=== PATIENT | male | born 1990 | race Caucasian/White ===

== ENCOUNTER 2017-01-05 19:41 | Emergency (ER) | payer SELFPAY ==
[~2017-01-05] VITALS: Ht 188 cm; Wt 78.5 kg
[~2017-01-05 19:41] MED LIST: IBUP-103 PO
[2017-01-05 19:56] VITALS: TEMP 37.2; Ht 188 cm; Wt 78.5 kg
[2017-01-05] MEDS ORDERED: AMOXICILLIN 250 MG CAP PO STA (20:04)
--- NOTE | 2017-01-05 20:13 | EMERGENCY ROOM VISIT NOTE ---
ED Visit Note First contact with patient: 19:58 CHIEF COMPLAINT: Toothache HISTORY OF PRESENT ILLNESS: This 26-year-old male presents the ER with chief complaint of left upper tooth pain. The patient states that he has had the pain in the tooth for several months but got worse over the last week and today it became unbearable. The patient has been taking Advil without any relief. The patient states the pain is now radiating up to his face on the left side. He denies any facial swelling. The patient denies any fever or neck pain. The patient states that he does not have dental insurance and he also cannot take off of work to go to the dentist. REVIEW OF SYSTEMS: 6 system review was performed and was negative unless stated otherwise in history of present illness. PMH: The patient is healthy; epilepsy, brain surgery SOCIAL HISTORY: Patient lives with his girlfriend. The patient admits to tobacco use but denies any alcohol use PHYSICAL EXAM: Vital Signs: Were reviewed Reviewed Nurse's notes. GEN.: 26-year -old white male appears uncomfortable secondary to tooth pain. MENTAL Status: Alert and oriented 3. MOUTH: #10 and 11 tooth are very carious with tenderness to percussion. Poor dental hygiene is noted throughout. Comes with slight erythema but no palpable abscess. FACE: There is no facial swelling, NECK: No cervical or submandibular lymphadenopathy. LUNGS: Clear to auscultation without wheezes rales or rhonchi. EMERGENCY COURSE: The patient drove himself to the emergency room therefore he did not receive any additional pain medication while in the ER. He was given a Swan home pack to take as directed. He was given amoxicillin 500 mg while in the emergency room. The patient was discharged home in stable condition. DIAGNOSIS: Dental caries and dentalgia DISCHARGE INSTRUCTIONS & TREATMENT: Ibuprofen 600 mg every 6 hours with food for pain. Take Swan as needed for more severe pain. Do not drive while taking the Swan. Also recommend [id number] Orajel to apply adjacent to the teeth for further pain management. Take amoxicillin as prescribed. See a dentist as soon as possible for definitive care. Problem List Medical Problems: (1) Cavernous hemangioma Status: Chronic (2) Seizure Status: Resolved (3) Seizure disorder Status: Chronic Surgical Problems: (1) S/P craniotomy Status: Resolved Current/Historical Medications Scheduled PRN Ibuprofen Tab (Advil), 200-600 MG PO Q4H PRN for Pain Allergies Coded Allergies: No Known Allergies (Unverified , 01/05/17) Vital Signs Date Time Temp Pulse Resp B/P Pulse Ox O2 Delivery O2 Flow Rate FiO2 01/05/17 19:56 37.2 64 18 119/87 96 Room Air Departure Information Referrals No Doctor, Assigned (PCP) Patient Instructions [facility]
[2017-01-05] MEDS ORDERED: NORCO 5/325MG HOME PACK PO ONE (20:15)
[2017-01-05] MEDS ORDERED: AMOX500C3 PO (20:22)
[2017-01-05] MEDS ORDERED: HYDR-5688 PO (20:22)
[2017-01-05 20:26] VITALS: BP 115/62; PULSE 62; O2SAT 98
== END 2017-01-05 20:27 | disposition home or self-care (01) ==
LOC: C.EDB 19:42 → C.EDD 20:27
DX: K02.9 Dental caries, unspecified (principal)

== ENCOUNTER 2017-12-24 06:48 | Emergency (ER) | payer BC ==
[~2017-12-24] VITALS: Ht 188 cm; Wt 75.3 kg
[2017-12-24 06:49] VITALS: Ht 188 cm; Wt 75.3 kg
[2017-12-24 07:29] VITALS: O2SAT 99
[2017-12-24] MEDS ORDERED: KETOROLAC TROMETHAMINE 30 MG/ML VIAL IV STA (07:39)
[2017-12-24] MEDS ORDERED: SODIUM CHLORIDE 0.9% 1000ML 1,000 ML IV STA (07:39)
[2017-12-24 07:57] LABS: BASO % 0.3 %; BASO ABS # 0.02 K/uL (0-0.2); EOS % 2.3 %; EOS ABS # 0.15 K/uL (0-0.5); HEMATOCRIT 40.9 % (42-52); HEMOGLOBIN 14.9 g/dL (14.0-18.0); IG# 0.02 K/uL (0.00-0.02); LYMPH % 30.8 %; LYMPH ABS # 1.99 K/uL (1.2-3.4); MEAN CELL VOLUME 86.8 fL (80-100); MEAN CORPUSCULAR HEMOGLOBIN 31.6 pg (25-34); MEAN CORPUSCULAR HGB CONC 36.4 g/dl (32-36); MEAN PLATELET VOLUME 9.6 fL (7.4-10.4); MONO % 9.9 %; MONO ABS # 0.64 K/uL (0.11-0.59); NEUT % 56.4 %; NEUT ABS # 3.65 K/uL (1.4-6.5); PLATELET COUNT 192 K/uL (130-400); RED CELL DISTRIBUTION WIDTH CV 12.5 % (11.5-14.5); RED CELL DISTRIBUTION WIDTH SD 40.2 fL (36.4-46.3); WHITE BLOOD COUNT 6.47 K/uL (4.8-10.8)
--- NOTE | 2017-12-24 08:00 | DIAGNOSTIC IMAGING REPORT ---
CHEST ONE VIEW PORTABLE HISTORY: SEIZURE COMPARISON: Chest 09/24/2010. FINDINGS: The lungs are clear. Cardiac silhouette is normal in size. No pleural effusions. No pneumothorax. IMPRESSION: No acute process. Electronically signed by: Hermelindo Murcia M.D. 12/24/2017 7:58 AM Dictated Date/Time: 12/24/2017 7:57 AM
--- NOTE | 2017-12-24 08:04 | DIAGNOSTIC IMAGING REPORT ---
CT HEAD WITHOUT CONTRAST (CT) CLINICAL HISTORY: SEIZURE HISTORY OF PRIOR BRAIN TUMOR. COMPARISON STUDY: June 27, 2013 TECHNIQUE: Axial CT of the brain is performed from the vertex to the skull base. IV contrast was not administered for this examination. A dose lowering technique was utilized adhering to the principles of ALARA. CT DOSE: 537.48 mGy.cm FINDINGS: Post craniotomy changes are again evident on the right. There is a stable 12 mm hyperdense lesion abutting the right lateral ventricle. This is producing felt to represent a cavernoma. There is stable encephalomalacia involving the right temporal lobe. There is a new 16 mm hyperdense focus within the right frontal lobe in the area of prior encephalomalacia. There is slight increased white matter edema associated with this lesion. This may represent a new hemorrhagic focus. An MRI is recommended in follow-up. There is no evidence of pathologic ventricular dilatation. There is no evidence of acute sinusitis IMPRESSION: 1. Persistent postsurgical changes in the right hemisphere 2. New 16 mm hyperdense lesion within the right frontal lobe, possibly representing acute hemorrhage. An MRI is recommended in follow-up 3. Stable 12 mm hyperdense lesion abutting the right lateral ventricle, consistent with the patient's known cavernoma Electronically signed by: Franco Quintana M.D. 12/24/2017 8:03 AM Dictated Date/Time: 12/24/2017 7:47 AM
[2017-12-24 08:09] LABS: INR 1.1 (0.9-1.1); PTT PATIENT 23.8 SECONDS (21.0-31.0)
[2017-12-24 08:12] LABS: CALCIUM 9.6 mg/dl (8.5-10.1); CREATININE 0.96 mg/dl (0.60-1.40); POTASSIUM 3.4 mmol/L (3.5-5.1)
[2017-12-24 08:21] LABS: PHOSPHORUS 2.2 mg/dl (2.5-4.9)
[2017-12-24] MEDS ORDERED: MoRPHine SULFATE 4 MG/ML 1 ML CARP\\VIAL IV STA (08:37)
[2017-12-24] MEDS ORDERED: LEVETIRACETAM IV 1,000 MG in DEXTROSE 5% 100ML 100 ML IV ONE (08:45)
[2017-12-24 10:14] VITALS: BP 92/59; PULSE 54; TEMP 36.4; O2SAT 96
--- NOTE | 2017-12-24 13:47 | EMERGENCY ROOM VISIT NOTE ---
History Report prepared by Patricia: Asim Person Under the Supervision of: Dr. Jesse Johnson D.O. First contact with patient: 06:55 Chief Complaint: SEIZURE Stated Complaint: SEIZURE Nursing Triage Summary: Patient states "I had a seizure last night. I was sleeping whenever it happened. My girlfriend told me this morning. I have a history of them. I don't take medications for it. This is the first seizure I had in over a year. " History of Present Illness The patient is a 27 year old male who presents to the Emergency Room with complaints of a resolved seizure that occurred around 5045 this morning while sleeping, and it lasted 2-3 minutes. The patient's girlfriend states that the patient was sleeping, and he started shaking, his arms went stiff, and he was gasping for air. The patient was then incoherent for around 20 minutes, and then he eventually got back to his baseline. He states that he has a history of seizures, and he states that this is his third seizure since 2009 after having brain surgery. He had a removal of a cavernous hemangioma. Prior to the surgery he was having more seizures. The patient states that he used to take Depakote until his surgery, and then since then he has stopped taking it, and he does not regularly follow up with a neurologist. The patient states that he currently has a headache which is common for his seizures. The patient notes that he does not drive. Pt denies change in vision, fevers, chest pain, shortness of breath, nausea, vomiting, diarrhea, pain with urination, and melena. Source of History: patient Onset: 0545 Position: other (global) Quality: other (seizure) Timing: resolved Associated Symptoms: + headache Review of Systems See HPI for pertinent positives & negatives. A total of 10 systems reviewed and were otherwise negative. Past Medical & Surgical Medical Problems: (1) Cavernous hemangioma (2) Seizure (3) Seizure disorder Surgical Problems: (1) S/P craniotomy Social History Smoking Status: Current Every Day Smoker Alcohol Use: occasionally Drug Use: none Marital Status: single Housing Status: lives with family Occupation Status: employed Current/Historical Medications No Active Prescriptions or Reported Meds Allergies Coded Allergies: No Known Allergies (Unverified , 12/24/17) Physical Exam Vital Signs Date Time Temp Pulse Resp B/P (MAP) Pulse Ox O2 Delivery O2 Flow Rate FiO2 12/24/17 10:14 36.4 54 12 92/59 96 12/24/17 10:00 54 12 92/59 96 12/24/17 09:45 59 12 90/55 96 12/24/17 09:40 58 14 96 12/24/17 09:30 57 16 93/57 97 Room Air 12/24/17 09:00 59 16 107/60 96 Room Air 12/24/17 07:55 75 12/24/17 07:29 99 Room Air 12/24/17 06:49 36.4 91 18 108/73 94 Room Air Physical Exam GENERAL: Sitting up in bed, alert, well appearing, well nourished, no distress, non-toxic EYE EXAM: normal conjunctiva. PERRL and EOM's intact. OROPHARYNX: no exudate, no erythema, lips, buccal mucosa, and tongue normal and mucous membranes are moist NECK: supple, no nuchal rigidity, no adenopathy, non-tender LUNGS: Clear to auscultation. Normal chest wall mechanics HEART: no murmurs, S1 normal and S2 normal ABDOMEN: abdomen soft, non-tender, normo-active bowel sounds, no masses, no rebound or guarding. BACK: Back is symmetrical on inspection and there is no deformity, no midline tenderness, no CVA tenderness. SKIN: no rashes and no bruising UPPER EXTREMITIES: upper extremities are grossly normal. LOWER EXTREMITIES: No pitting edema. NEURO EXAM: Normal sensorium, cranial nerves II-XII intact, normal speech, no weakness of arms, no weakness of legs. No drift. Finger to nose intact. Gross sensation intact. Rapid alternating movements of the upper extremities intact. Medical Decision & Procedures ER Provider Diagnostic Interpretation: Radiology results as stated below per my review and the radiologist's interpretation: CT HEAD WITHOUT CONTRAST (CT) CLINICAL HISTORY: SEIZURE HISTORY OF PRIOR BRAIN TUMOR. COMPARISON STUDY: June 27, 2013 TECHNIQUE: Axial CT of the brain is performed from the vertex to the skull base. IV contrast was not administered for this examination. A dose lowering technique was utilized adhering to the principles of ALARA. CT DOSE: 537.48 mGy.cm FINDINGS: Post craniotomy changes are again evident on the right. There is a stable 12 mm hyperdense lesion abutting the right lateral ventricle. This is producing felt to represent a cavernoma. There is stable encephalomalacia involving the right temporal lobe. There is a new 16 mm hyperdense focus within the right frontal lobe in the area of prior encephalomalacia. There is slight increased white matter edema associated with this lesion. This may represent a new hemorrhagic focus. An MRI is recommended in follow-up. There is no evidence of pathologic ventricular dilatation. There is no evidence of acute sinusitis IMPRESSION: 1. Persistent postsurgical changes in the right hemisphere 2. New 16 mm hyperdense lesion within the right frontal lobe, possibly representing acute hemorrhage. An MRI is recommended in follow-up 3. Stable 12 mm hyperdense lesion abutting the right lateral ventricle, consistent with the patient's known cavernoma Electronically signed by: Franco Quintana M.D. 12/24/2017 8:03 AM Dictated Date/Time: 12/24/2017 7:47 AM CHEST ONE VIEW PORTABLE HISTORY: SEIZURE COMPARISON: Chest 09/24/2010. FINDINGS: The lungs are clear. Cardiac silhouette is normal in size. No pleural effusions. No pneumothorax. IMPRESSION: No acute process. Electronically signed by: Hermelindo Murcia M.D. 12/24/2017 7:58 AM Dictated Date/Time: 12/24/2017 7:57 AM Laboratory Results 12/24/17 07:20 Red Blood Count 4.71, Mean Corpuscular Volume 86.8, Mean Corpuscular Hemoglobin 31.6, Mean Corpuscular Hemoglobin Concent 36.4, Mean Platelet Volume 9.6, Neutrophils (%) (Auto) 56.4, Lymphocytes (%) (Auto) 30.8, Monocytes (%) (Auto) 9.9, Eosinophils (%) (Auto) 2.3, Basophils (%) (Auto) 0.3, Neutrophils # (Auto) 3.65, Lymphocytes # (Auto) 1.99, Monocytes # (Auto) 0.64, Eosinophils # (Auto) 0.15, Basophils # (Auto) 0.02 12/24/17 07:20 Test 12/24/17 07:20 12/24/17 07:21 White Blood Count 6.47 K/uL (4.8-10.8) Red Blood Count 4.71 M/uL (4.7-6.1) Hemoglobin 14.9 g/dL (14.0-18.0) Hematocrit 40.9 % (42-52) Mean Corpuscular Volume 86.8 fL (80-100) Mean Corpuscular Hemoglobin 31.6 pg (25-34) Mean Corpuscular Hemoglobin Concent 36.4 g/dl (32-36) Platelet Count 192 K/uL (130-400) Mean Platelet Volume 9.6 fL (7.4-10.4) Neutrophils (%) (Auto) 56.4 % Lymphocytes (%) (Auto) 30.8 % Monocytes (%) (Auto) 9.9 % Eosinophils (%) (Auto) 2.3 % Basophils (%) (Auto) 0.3 % Neutrophils # (Auto) 3.65 K/uL (1.4-6.5) Lymphocytes # (Auto) 1.99 K/uL (1.2-3.4) Monocytes # (Auto) 0.64 K/uL (0.11-0.59) Eosinophils # (Auto) 0.15 K/uL (0-0.5) Basophils # (Auto) 0.02 K/uL (0-0.2) RDW Standard Deviation 40.2 fL (36.4-46.3) RDW Coefficient of Variation 12.5 % (11.5-14.5) Immature Granulocyte % (Auto) 0.3 % Immature Granulocyte # (Auto) 0.02 K/uL (0.00-0.02) Prothrombin Time 11.2 SECONDS (9.0-12.0) Prothromb Time International Ratio 1.1 (0.9-1.1) Activated Partial Thromboplast Time 23.8 SECONDS (21.0-31.0) Partial Thromboplastin Ratio 0.9 Anion Gap 7.0 mmol/L (3-11) Est Creatinine Clear Calc Drug Dose 122.0 ml/min Estimated GFR () 124.2 Estimated GFR (Non- 107.1 BUN/Creatinine Ratio 13.1 (10-20) Calcium Level 9.6 mg/dl (8.5-10.1) Phosphorus Level 2.2 mg/dl (2.5-4.9) Magnesium Level 2.6 mg/dl (1.8-2.4) Thyroid Stimulating Hormone (TSH) 3.830 uIu/ml (0.300-4.500) Bedside Glucose 94 mg/dl (70-99) Laboratory results per my review. Medications Administered Medications (Trade) Dose Ordered Sig/Bay Route Start Time Stop Time Status Last Admin Dose Admin Sodium Chloride 1,000 ml @ 999 mls/hr Q1H1M STAT IV 12/24/17 07:39 12/24/17 08:39 DC 12/24/17 08:11 999 MLS/HR Ketorolac Tromethamine (Toradol Inj) 30 mg NOW STAT IV 12/24/17 07:39 12/24/17 07:41 DC 12/24/17 08:12 30 MG Levetiracetam 1000 mg/Dextrose 110 ml @ 440 mls/hr ONE ONCE IV 12/24/17 08:45 12/24/17 08:59 DC 12/24/17 09:21 440 MLS/HR ECG Per My Interpretation Indication: other (seizure) Rate (beats per minute): 70 Rhythm: sinus rhythm Findings: no ectopy, other (normal axis) ED Course ED COURSE: Vital signs were reviewed and showed normal vitals The patients medical record was reviewed The above diagnostic studies were performed and reviewed. ED treatments and interventions as stated above. 0655: The patient was evaluated in room B2. A complete history and physical examination was performed. 0739: Toradol 30mg IV, Sodium Chloride 1000 ml @ 999 mls/hr IV 0817: I reevaluated the patient, and I updated him on the results. 0824: I discussed the patient's case with Dr. Quintana - Radiology, and he recommends getting an MRI with and without contrast. 0837: Morphine Sulfate 4mg IV 0838: Upon reevaluation, the patient is doing well.I discussed my findings with the patient and he understands and agrees with the treatment plan. Based on the patients age, coexisting illnesses, exam and lab findings the decision to treat as transfer patient was made. The patient remained stable while under my care. The patient will be transferred to [place] 0845: Levetiracetam 110ml @ 440mls.hr IV 0902: I reviewed the patient's case with Dr. Gary - [facility]. He has accepted the patient as a transfer. Medical Decision Differential diagnosis includes etiologies such as infection, hypoglycemia, electrolyte abnormalities, cardiac sources, intracerebral event, trauma, toxicologic, neurologic, as well as others were entertained. Patient is a 19-year-old male that presents to ER for a seizure which occurred while sleeping. He has a past medical history of hemangiomas and had brain surgery secondary to these in 2009. Since then he has only had 2-[address] he does appeared to have intracerebral hemorrhage. I do favor this is secondary to his history of hemangiomas. Did discuss with her radiologist. As we have no neurosurgeon on-call I did discuss with Jamila and patient was transferred via ambulance. CBC and BMP was unremarkable. TSH was normal. He takes no blood thinners. Unfortunately he was given a dose of Toradol upon arrival. He was also given IV Keppra secondary to the seizure and intracranial hemorrhage. Medication Reconcilliation Current Medication List: was personally reviewed by me Blood Pressure Screening Patient's blood pressure: Normal blood pressure Consults Time Called: 0840 Consulting Physician: Dr. Gary - [facility] Returned Call: 09 I reviewed the patient's case with Dr. [facility]. He has accepted the patient as a transfer. Additional Consults: Time Called: 0815 Consulted Physician: Dr. Quintana Returned Call: 08 Additional Comments: I discussed the patient's case with Dr. Quintana - Radiology, and he recommends getting an MRI with and without contrast. Impression Primary Impression: Intracranial hemorrhage Additional Impressions: Seizure Hypokalemia Critical Care I have personally spent 35 minutes of critical care time in the direct management of this patient. This includes bedside care, interpretation of diagnostic studies, and testing, discussion with consultants, patient, and family members, and other required patient management activities. This 35 minutes is in excess of all separately billable procedures. Scribe Attestation The scribe's documentation has been prepared under my direction and personally reviewed by me in its entirety. I confirm that the note above accurately reflects all work, treatment, procedures, and medical decision making performed by me. Departure Information Dispostion Transfer Acute Care Facility Prescriptions No Active Prescriptions or Reported Meds Referrals No Doctor, Assigned (PCP) Patient Instructions [facility] Problem Qualifiers
== END 2017-12-24 10:15 | disposition short-term general hospital (02) ==
LOC: C.EDB 06:49
DX: I62.9 Nontraumatic intracranial hemorrhage, unspecified (principal); R56.9 Unspecified convulsions; E87.6 Hypokalemia; F17.200 Nicotine dependence, unspecified, uncomplicated

== ENCOUNTER 2018-01-04 15:09 | Emergency (ER) | payer BC ==
[~2018-01-04] VITALS: Ht 188 cm; Wt 74.6 kg
[2018-01-04 15:18] VITALS: TEMP 37.2; Ht 188 cm; Wt 74.6 kg
[2018-01-04] MEDS ORDERED: SODIUM CHLORIDE 0.9% 1000ML 2,000 ML IV STA (15:31)
--- NOTE | 2018-01-04 15:31 | EMERGENCY ROOM VISIT NOTE ---
History Report prepared by Patricia: Jonatan Barrios Under the Supervision of: Dr. Manuel Cosme M.D. First contact with patient: 15:17 Chief Complaint: SEIZURE Stated Complaint: SEIZURE History of Present Illness The patient is a 27 year old male with a history of seizure disorder who presents to the Emergency Room via EMS with complaints of a seizure episode that occurred prior to arrival today. He states that he was diagnosed with grand mal seizure disorder when he was 9 years old, and was started on Depakote. The patient says that he stopped taking the medication 2 years ago, but had a seizure episode a bit over a week ago and was seen at the [place] [facility]. The patient was then started on the Depakote again, but the patient states that he stopped taking it 3 or 4 days ago because it was making him nauseous. Per the patient's girlfriend, she was at [facility] earlier today with the patient. The patient was standing, and then he noted that "it's happening", and he then started going into a grand mal seizure. The patient was on the floor shaking, and it went on for about 2 to 3 minutes. He was then noted to be a bit confused afterward. He states that he currently has a headache, but denies any other complaints, including cough, congestion, nausea, vomiting, diarrhea, or urinary symptoms. He notes no history of traumatic brain injuries. The patient notes that he follows-up with Dr. Peng of neurology, but has not seen him since having brain surgery in 2009 for cavernous hemangioma. He states that he also saw Dr. Hamilton of neurosurgery at that time. 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 Review of Systems See HPI for pertinent positives and negatives. A total of ten systems were reviewed and were otherwise negative. Past Medical & Surgical Medical Problems: (1) Cavernous hemangioma (2) Seizure (3) Seizure disorder Surgical Problems: (1) S/P craniotomy Family History Seizures Social History Smoking Status: Current Every Day Smoker Alcohol Use: occasionally Drug Use: none Marital Status: single Housing Status: lives with family Occupation Status: employed Current/Historical Medications Scheduled Divalproex Sodium (Depakote Delay Rel), 500 MG PO QID Levetiracetam (Keppra), 500 MG PO BID Ondasetron Odt (Zofran Odt), 4 MG SL Q6H Allergies Coded Allergies: No Known Allergies (Unverified , 01/04/18) Physical Exam Vital Signs Date Time Temp Pulse Resp B/P (MAP) Pulse Ox O2 Delivery O2 Flow Rate FiO2 01/04/18 20:58 72 01/04/18 20:51 61 16 95 01/04/18 20:36 73 15 97 01/04/18 20:31 119/72 01/04/18 20:21 81 21 98 01/04/18 20:06 71 13 98 01/04/18 20:01 118/70 01/04/18 20:00 72 14 97 01/04/18 19:55 106/94 01/04/18 19:33 69 16 112/67 96 Room Air 01/04/18 17:46 61 15 110/70 99 Room Air 01/04/18 16:56 68 01/04/18 16:10 82 17 117/77 97 Room Air 01/04/18 15:27 110 01/04/18 15:18 37.2 112 20 161/85 99 Room Air Physical Exam GENERAL: Awake, alert, fatigued-appearing, in no distress HENT: Normocephalic, atraumatic. Dry mucous membranes. EYES: Normal conjunctiva. Sclera non-icteric. NECK: Supple. No nuchal rigidity. FROM. No JVD. RESPIRATORY: Clear to auscultation. CARDIAC: Regular rate, normal rhythm. Extremities warm and well perfused. Pulses equal. ABDOMEN: Soft, non-distended. No tenderness to palpation. No rebound or guarding. No masses. RECTAL: Deferred. MUSCULOSKELETAL: Chest examination reveals no tenderness. The back is symmetrical on inspection without obvious abnormality. There is no CVA tenderness to palpation. No joint edema. LOWER EXTREMITIES: Calves are equal size bilaterally and non-tender. No edema. No discoloration. NEURO: Normal sensorium. No sensory or motor deficits noted. SKIN: No rash or jaundice noted. Medical Decision & Procedures ER Provider Diagnostic Interpretation: Radiology results as stated below per my review and radiologist interpretation: HEAD WITHOUT CONTRAST (CT) CLINICAL HISTORY: 27 years-old Male presenting with siezure, recent ICH, history of brain tumor. TECHNIQUE: Multidetector CT imaging of the head was performed without the use of intravenous contrast. IV contrast: None. A dose lowering technique was used consistent with the principles of ALARA (as low as reasonably achievable). COMPARISON: 12/24/2017. CT DOSE (mGy.cm): The estimated cumulative dose is 580.48 mGy.cm. 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 Ventricles and sulci normal in size. Cystic encephalomalacia and gliosis noted in the right frontal region with persistent hyperdense foci peripherally in the right frontal lobe as well as adjacent to the right thalamus in the subcortical white matter. These remain hyperdense and have not evolved in the interim. Cystic encephalomalacia also noted in the anterolateral right temporal lobe. No mass effect or midline shift. No acute territorial infarct. No extra-axial fluid collection. Postsurgical changes of right frontotemporal craniotomy. Paranasal sinuses and mastoid air cells clear. IMPRESSION: 1. Unchanged appearance since the most recent prior CT on 12/24/2017. Hyperdense focus adjacent to the right thalamus is unchanged since 2012 and not consistent with hemorrhage, possibly calcification. Hyperdense focus more peripherally in the right frontal lobe does not demonstrate interval evolution and may not represent hemorrhage. Contrast-enhanced brain MR is recommended for further evaluation. Electronically signed by: Andreas Conteh M.D. 01/04/2018 4:58 PM Dictated Date/Time: 01/04/2018 4:53 PM BRAIN COMBO CLINICAL HISTORY: 27 years-old Male presenting with Seizures. h/o hemagioma resection. TECHNIQUE: Multisequence, multiplanar MR imaging of the brain was performed before and after the administration of intravenous contrast. IV contrast: 7.4 mL of Gadavist. COMPARISON: 06/24/[address] from 01/04/2018, 12/24/2017, 06/27/2013. FINDINGS: Postsurgical changes of the right frontal region with cystic encephalomalacia and gliosis in the operative bed. Multilobular T1 hyperintense, mildly T2 hyperintense focus corresponds to the hyperdense peripheral frontal lobe focus seen on CT. Signal characteristics are indicative of hemorrhage. The additional hyperdense focus adjacent to the right thalamus is mildly T1 hypointense, T2 hypointense and most suggestive of hemosiderin or calcification. Additional cystic encephalomalacia and gliosis in the right temporal lobe. Postcontrast imaging does not demonstrate significant enhancement in the right frontal operative bed allowing for intrinsic T1 hyperintensity of the hemorrhage. No nodular enhancement in the right temporal lobe or elsewhere in the brain parenchyma. No mass effect or midline shift. No restricted diffusion to suggest acute ischemia. No hemorrhage. No extra-axial fluid collection. T2 skull base flow voids preserved. Bone marrow signal intensity within the calvarium within normal limits. IMPRESSION: 1. Postsurgical changes in the right frontal and temporal lobes with the hyperdense lobular focus in the right frontal region consistent with subacute hemorrhage. The deeper hyperdense focus on CT adjacent to the right thalamus is consistent with calcification or hemosiderin. No nodular enhancement to suggest recurrent neoplastic disease. Electronically signed by: Andreas Conteh M.D. 01/04/2018 7:43 PM Dictated Date/Time: 01/04/2018 7:36 PM Laboratory Results 01/04/18 15:22 Red Blood Count 5.48, Mean Corpuscular Volume 89.4, Mean Corpuscular Hemoglobin 31.8, Mean Corpuscular Hemoglobin Concent 35.5, Mean Platelet Volume 9.9, Neutrophils (%) (Auto) 58.2, Lymphocytes (%) (Auto) 28.5, Monocytes (%) (Auto) 9.4, Eosinophils (%) (Auto) 3.0, Basophils (%) (Auto) 0.6, Neutrophils # (Auto) 3.84, Lymphocytes # (Auto) 1.88, Monocytes # (Auto) 0.62, Eosinophils # (Auto) 0.20, Basophils # (Auto) 0.04 01/04/18 15:22 Test 01/04/18 15:22 01/04/18 16:02 White Blood Count 6.60 K/uL (4.8-10.8) Red Blood Count 5.48 M/uL (4.7-6.1) Hemoglobin 17.4 g/dL (14.0-18.0) Hematocrit 49.0 % (42-52) Mean Corpuscular Volume 89.4 fL (80-100) Mean Corpuscular Hemoglobin 31.8 pg (25-34) Mean Corpuscular Hemoglobin Concent 35.5 g/dl (32-36) Platelet Count 253 K/uL (130-400) Mean Platelet Volume 9.9 fL (7.4-10.4) Neutrophils (%) (Auto) 58.2 % Lymphocytes (%) (Auto) 28.5 % Monocytes (%) (Auto) 9.4 % Eosinophils (%) (Auto) 3.0 % Basophils (%) (Auto) 0.6 % Neutrophils # (Auto) 3.84 K/uL (1.4-6.5) Lymphocytes # (Auto) 1.88 K/uL (1.2-3.4) Monocytes # (Auto) 0.62 K/uL (0.11-0.59) Eosinophils # (Auto) 0.20 K/uL (0-0.5) Basophils # (Auto) 0.04 K/uL (0-0.2) RDW Standard Deviation 40.5 fL (36.4-46.3) RDW Coefficient of Variation 12.4 % (11.5-14.5) Immature Granulocyte % (Auto) 0.3 % Immature Granulocyte # (Auto) 0.02 K/uL (0.00-0.02) Anion Gap 16.0 mmol/L (3-11) Est Creatinine Clear Calc Drug Dose 86.6 ml/min Estimated GFR () 83.0 Estimated GFR (Non- 71.6 BUN/Creatinine Ratio 9.5 (10-20) Calcium Level 9.7 mg/dl (8.5-10.1) Magnesium Level 2.4 mg/dl (1.8-2.4) Total Bilirubin 0.5 mg/dl (0.2-1) Direct Bilirubin 0.1 mg/dl (0-0.2) Aspartate Amino Transf (AST/SGOT) 14 U/L (15-37) Alanine Aminotransferase (ALT/SGPT) 26 U/L (12-78) Alkaline Phosphatase 83 U/L (45-117) Total Protein 8.5 gm/dl (6.4-8.2) Albumin 4.8 gm/dl (3.4-5.0) Lipase 136 U/L (73-393) Ethyl Alcohol mg/dL < 3.0 mg/dl (0-3) Laboratory results reviewed by me Medications Administered Medications (Trade) Dose Ordered Sig/Bay Route Start Time Stop Time Status Last Admin Dose Admin Levetiracetam 1000 mg/Dextrose 110 ml @ 440 mls/hr ONE ONCE IV 01/04/18 15:45 01/04/18 15:59 DC 01/04/18 16:07 440 MLS/HR Sodium Chloride 2,000 ml @ 999 mls/hr Q2H1M STAT IV 01/04/18 15:31 01/04/18 17:31 DC 01/04/18 15:31 999 MLS/HR Levetiracetam (Keppra Tab) 500 mg NOW STAT PO 01/04/18 20:18 01/04/18 20:21 DC 01/04/18 21:06 500 MG Ondansetron HCl (ZOFRAN ODT 4MG Home Pack) 1 homepack UD ONCE PO 01/04/18 20:30 01/04/18 20:31 DC 01/04/18 21:06 1 HOMEPACK ECG Per My Interpretation Indication: other (seizure) Rate (beats per minute): 85 Rhythm: normal sinus Findings: no acute ischemic change, other (normal axis) ED Course 1520: The patient was evaluated in room C5. A complete history and physical exam was performed. 1999: I reevaluated the patient and he is resting. Discussed results and discharge instructions: he verbalized understanding and agreement. The patient will be discharged. Medical Decision I reviewed the patient's past medical history, medications, and the nursing notes as described above. Differential diagnosis: Etiologies such as infection, hypoglycemia, electrolyte abnormalities, cardiac sources, intracerebral event, trauma, toxicologic, neurologic, as well as others were entertained. The patient is a 27-year-old gentleman with past medical history of a seizure disorder diagnosed when he was 9 years old and supposed to be on Depakote but had stopped taking it 2 years ago because it makes him sick and h/o hemangioma resection 2009 now presents emergency department with seizure episode setting of been seen in the ED for similar episode on December 24 found to have a question of a right frontal lobe bleed per hpi. Of note during that ED visit the patient was transferred to [facility] for neurosurgery consultation however upon arrival the patient reports that he arrived to the ED and left AMA because he "had to go to work". On arrival, the patient is in no acute distress , afebrile stable vital signs. He is neurologically intact including normal cerebellar function with [id number], alternating palms, [id number]. Labs unremarkable. CT scan obtained unchanged from prior. MRI performed to further clarify right frontal lobe findings and are consistent with subacute hemorrhage likely related to the patient's prior visit. Patient was loaded with 1 g of Keppra upon arrival. Case discussed with Dr. Shea, and [facility] neurology, patient previously followed with Dr. Peng. Agrees with plan to start patient on Keppra given his noncompliance on his Depakote. Patient should call the office on Saturday for follow-up visit within 1 week. Findings and plan for follow-up reviewed with patient. Patient agreeable and d/c'd per discharge instructions. Medication Reconcilliation Current Medication List: was personally reviewed by me Blood Pressure Screening Patient's blood pressure: Normal blood pressure Impression Primary Impression: Seizure disorder Scribe Attestation The scribe's documentation has been prepared under my direction and personally reviewed by me in its entirety. I confirm that the note above accurately reflects all work, treatment, procedures, and medical decision making performed by me. Departure Information Dispostion Home / Self-Care Prescriptions Ondasetron Odt (ZOFRAN ODT) 4 Mg Tab 4 MG SL Q6H for Nausea, #10 TAB Prov: Manuel Cosme M.D. 01/04/18 Levetiracetam (Keppra) 250 Mg Tab 500 MG PO BID for 30 Days, #120 TAB Prov: Manuel Cosme M.D. 01/04/18 Referrals Osvaldo Murphy M.D. (PCP) John Peng M.D. Patient Instructions ED Seizure Recurrent, Epilepsy Seizures, My [facility] Additional Instructions Please follow up with your neurologist, Dr. Peng, on Saturday for an appointment within one week for re-evaluation. Your seizures are most likely due not taking your seizure medications as well as possible involvement from recent bleeding in your brain from your last ED visit. Otherwise, your exam, EKG, lab results, CT scan and MRI of your brain did not show signs of an emergent condition at this time. Keppra as directed. Drink plenty of fluids to ensure hydration. Return to the emergency department for worsening symptoms as described in the accompanying instructions.
[2018-01-04] MEDS ORDERED: LEVETIRACETAM IV 1,000 MG in DEXTROSE 5% 100ML 100 ML IV ONE (15:45)
[2018-01-04 15:59] LABS: BASO % 0.6 %; BASO ABS # 0.04 K/uL (0-0.2); HEMOGLOBIN 17.4 g/dL (14.0-18.0); IG# 0.02 K/uL (0.00-0.02); LYMPH % 28.5 %; LYMPH ABS # 1.88 K/uL (1.2-3.4); MEAN CELL VOLUME 89.4 fL (80-100); MEAN CORPUSCULAR HEMOGLOBIN 31.8 pg (25-34); MEAN CORPUSCULAR HGB CONC 35.5 g/dl (32-36); MEAN PLATELET VOLUME 9.9 fL (7.4-10.4); MONO % 9.4 %; MONO ABS # 0.62 K/uL (0.11-0.59); NEUT % 58.2 %; NEUT ABS # 3.84 K/uL (1.4-6.5); PLATELET COUNT 253 K/uL (130-400); RED CELL DISTRIBUTION WIDTH CV 12.4 % (11.5-14.5); RED CELL DISTRIBUTION WIDTH SD 40.5 fL (36.4-46.3)
[2018-01-04] MEDS ORDERED: DIVA500T5 PO (16:07)
[2018-01-04 16:09] LABS: ALBUMIN 4.8 gm/dl (3.4-5.0); CALCIUM 9.7 mg/dl (8.5-10.1); CREATININE 1.34 mg/dl (0.60-1.40); POTASSIUM 3.9 mmol/L (3.5-5.1)
[2018-01-04 16:12] LABS: TOTAL PROTEIN 8.5 gm/dl (6.4-8.2)
--- NOTE | 2018-01-04 16:59 | DIAGNOSTIC IMAGING REPORT ---
HEAD WITHOUT CONTRAST (CT) CLINICAL HISTORY: 27 years-old Male presenting with siezure, recent ICH, history of brain tumor. TECHNIQUE: Multidetector CT imaging of the head was performed without the use of intravenous contrast. IV contrast: None. A dose lowering technique was used consistent with the principles of ALARA (as low as reasonably achievable). COMPARISON: 12/24/2017. CT DOSE (mGy.cm): The estimated cumulative dose is 580.48 mGy.cm. 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 Ventricles and sulci normal in size. Cystic encephalomalacia and gliosis noted in the right frontal region with persistent hyperdense foci peripherally in the right frontal lobe as well as adjacent to the right thalamus in the subcortical white matter. These remain hyperdense and have not evolved in the interim. Cystic encephalomalacia also noted in the anterolateral right temporal lobe. No mass effect or midline shift. No acute territorial infarct. No extra-axial fluid collection. Postsurgical changes of right frontotemporal craniotomy. Paranasal sinuses and mastoid air cells clear. IMPRESSION: 1. Unchanged appearance since the most recent prior CT on 12/24/2017. Hyperdense focus adjacent to the right thalamus is unchanged since 2013 and not consistent with hemorrhage, possibly calcification. Hyperdense focus more peripherally in the right frontal lobe does not demonstrate interval evolution and may not represent hemorrhage. Contrast-enhanced brain MR is recommended for further evaluation. Electronically signed by: Andreas Conteh M.D. 01/04/2018 4:58 PM Dictated Date/Time: 01/04/2018 4:53 PM
[2018-01-04] MEDS ORDERED: GADAVIST IV PRN (19:15)
--- NOTE | 2018-01-04 19:45 | DIAGNOSTIC IMAGING REPORT ---
BRAIN COMBO CLINICAL HISTORY: 27 years-old Male presenting with Seizures. h/o hemagioma resection. TECHNIQUE: Multisequence, multiplanar MR imaging of the brain was performed before and after the administration of intravenous contrast. IV contrast: 7.4 mL of Gadavist. COMPARISON: 06/24/[address] from 01/04/2018, 12/24/2017, 06/27/2013. FINDINGS: Postsurgical changes of the right frontal region with cystic encephalomalacia and gliosis in the operative bed. Multilobular T1 hyperintense, mildly T2 hyperintense focus corresponds to the hyperdense peripheral frontal lobe focus seen on CT. Signal characteristics are indicative of hemorrhage. The additional hyperdense focus adjacent to the right thalamus is mildly T1 hypointense, T2 hypointense and most suggestive of hemosiderin or calcification. Additional cystic encephalomalacia and gliosis in the right temporal lobe. Postcontrast imaging does not demonstrate significant enhancement in the right frontal operative bed allowing for intrinsic T1 hyperintensity of the hemorrhage. No nodular enhancement in the right temporal lobe or elsewhere in the brain parenchyma. No mass effect or midline shift. No restricted diffusion to suggest acute ischemia. No hemorrhage. No extra-axial fluid collection. T2 skull base flow voids preserved. Bone marrow signal intensity within the calvarium within normal limits. IMPRESSION: 1. Postsurgical changes in the right frontal and temporal lobes with the hyperdense lobular focus in the right frontal region consistent with subacute hemorrhage. The deeper hyperdense focus on CT adjacent to the right thalamus is consistent with calcification or hemosiderin. No nodular enhancement to suggest recurrent neoplastic disease. Electronically signed by: Andreas Conteh M.D. 01/04/2018 7:43 PM Dictated Date/Time: 01/04/2018 7:36 PM
[2018-01-04] MEDS ORDERED: LEVETIRACETAM 500 MG TAB PO STA (20:18)
[2018-01-04] MEDS ORDERED: LEVE250T PO (20:28)
[2018-01-04] MEDS ORDERED: ONDA4TAB10 SL (20:28)
[2018-01-04] MEDS ORDERED: ONDANSETRON HOME PACK 4MG OD TAB PO ONE (20:30)
[2018-01-04 20:31] VITALS: BP 119/72
[2018-01-04 20:51] VITALS: O2SAT 95
[2018-01-04 20:58] VITALS: PULSE 72
== END 2018-01-04 20:58 | disposition home or self-care (01) ==
LOC: EDBD 15:09 → C.EDC 15:10
DX: G40.909 Epilepsy, unspecified, not intractable, without status epilepticus (principal); D18.00 Hemangioma unspecified site; Z82.0 Family history of epilepsy and other diseases of the nervous system; F17.210 Nicotine dependence, cigarettes, uncomplicated; Z79.899 Other long term (current) drug therapy

== ENCOUNTER 2018-06-03 12:05 | Emergency (ER) | payer BC ==
[~2018-06-03] VITALS: Ht 188 cm; Wt 76.0 kg
[~2018-06-03 12:05] MED LIST changes: +DIVA-36 PO; -IBUP-103 PO; +ONDA4TAB10 SL
[2018-06-03 12:08] VITALS: TEMP 36.6
[2018-06-03 12:25] VITALS: O2SAT 100
[2018-06-03] MEDS ORDERED: SODIUM CHLORIDE 0.9% 1000ML 1,000 ML IV SCH (12:34)
[2018-06-03 12:36] VITALS: Ht 188 cm; Wt 76.0 kg
[2018-06-03 13:06] LABS: BASO % 0.5 %; BASO ABS # 0.03 K/uL (0-0.2); EOS ABS # 0.11 K/uL (0-0.5); HEMATOCRIT 43.7 % (42-52); HEMOGLOBIN 15.2 g/dL (14.0-18.0); IG# 0.01 K/uL (0.00-0.02); LYMPH % 29.5 %; LYMPH ABS # 1.62 K/uL (1.2-3.4); MEAN CELL VOLUME 87.9 fL (80-100); MEAN CORPUSCULAR HEMOGLOBIN 30.6 pg (25-34); MEAN CORPUSCULAR HGB CONC 34.8 g/dl (32-36); MEAN PLATELET VOLUME 9.6 fL (7.4-10.4); MONO % 7.6 %; MONO ABS # 0.42 K/uL (0.11-0.59); NEUT % 60.2 %; NEUT ABS # 3.31 K/uL (1.4-6.5); PLATELET COUNT 180 K/uL (130-400); RED CELL DISTRIBUTION WIDTH CV 12.8 % (11.5-14.5); RED CELL DISTRIBUTION WIDTH SD 40.9 fL (36.4-46.3)
--- NOTE | 2018-06-03 13:15 | DIAGNOSTIC IMAGING REPORT ---
HEAD WITHOUT CONTRAST (CT) CT DOSE: 537.48 mGy.cm HISTORY: Mental status change Stroke TECHNIQUE: Multiaxial CT images of the head were performed without the use of intravenous contrast. A dose lowering technique was utilized adhering to the principles of ALARA. Comparison: 01/04/2018 Findings: The paranasal sinuses and mastoid air cells are clear. Unchanged hyperdense focus of the right pelvis. This usually represents long-standing calcification. The right frontal hyperdense focus procedure described has resolved. 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 Right-sided craniotomy defect is stable. Focal area of encephalomalacia right temporal lobe is stable. Impression: Chronic and postoperative change. No acute intracranial abnormality. The above report was generated using voice recognition software. It may contain grammatical, syntax or spelling errors. Electronically signed by: Edgard Montesinos M.D. 06/03/2018 1:14 PM Dictated Date/Time: 06/03/2018 1:11 PM
[2018-06-03 13:19] LABS: INR 1.1 (0.9-1.1); PTT PATIENT 26.8 SECONDS (21.0-31.0)
[2018-06-03 13:27] LABS: BLOOD UREA NITROGEN 13 mg/dl (7-18); CALCIUM 9.3 mg/dl (8.5-10.1); CARBON DIOXIDE 30 mmol/L (21-32); CKMB < 1.0 ng/ml (0.5-3.6); CREATININE 0.91 mg/dl (0.60-1.40); GLUCOSE 94 mg/dl (70-99); POTASSIUM 4.6 mmol/L (3.5-5.1); SODIUM 137 mmol/L (136-145)
[2018-06-03] MEDS ORDERED: LEVE500T13 PO (14:48)
[2018-06-03] MEDS ORDERED: LEVETIRACETAM 500 MG TAB PO SCH (15:00)
[2018-06-03 15:08] VITALS: BP 121/89; PULSE 64; O2SAT 100
--- NOTE | 2018-06-03 17:52 | EMERGENCY ROOM VISIT NOTE ---
History Report prepared by Patricia: Avis Mcmahan Under the Supervision of: Dr. Jesse Johnson D.O. First contact with patient: 12:27 Chief Complaint: ARM PAIN Stated Complaint: L ARM LOSS OF DEXTERITY History of Present Illness The patient is a 28 year old male who presents to the Emergency Room with complaints of left arm pain and tingling beginning an hour prior to arrival. He states that his left hand started to feel weak and that he felt like he lost "50 % of his dexterity." The patient reports that the left side of his face also started to tingle. The patient reports a history of epilepsy and states that his seizures in the past have been preceded by these symptoms. The patient states that he wanted to come to the ED before he had a seizure after he started to have these symptoms. The patient reports that he has had epilepsy since the age of 9. He reports that he had a craniotomy for cavernous hemangioma in 2009 and that after this he has not had seizures as frequently. Per friend, the patient last had a seizure in the winter. The patient states that he has not been taking his medications since January. He denies having any nausea, vomiting, urinary symptoms, chest pain, shortness of breath, and diarrhea. The patient denies any recent head trauma or history of strokes. Review of patient's notes show that the patient follows with Dr. Peng and is supposed to be on Depakote. Source of History: patient, friend Onset: an hour prior to arrival Position: arm (left) Quality: tingling, other (pain) Associated Symptoms: + weakness (in left hand ), No chest pain, No SOB, No nausea, No vomiting, No diarrhea, No urinary symptoms Note: additional symptom: tingling in left side of face Review of Systems See HPI for pertinent positives & negatives. A total of 10 systems reviewed and were otherwise negative. Past Medical & Surgical Medical Problems: (1) Cavernous hemangioma (2) Epilepsy (3) Seizure (4) Seizure disorder Surgical Problems: (1) S/P craniotomy Family History Seizures Social History Smoking Status: Current Every Day Smoker Alcohol Use: occasionally Drug Use: none Marital Status: single Housing Status: lives with family Occupation Status: employed Current/Historical Medications Scheduled Levetiracetam (Keppra), 500 MG PO BID Allergies Coded Allergies: No Known Allergies (Unverified , 06/03/18) Physical Exam Vital Signs Date Time Temp Pulse Resp B/P (MAP) Pulse Ox O2 Delivery O2 Flow Rate FiO2 06/03/18 15:08 64 18 121/89 100 06/03/18 13:30 50 18 96/63 98 Room Air 06/03/18 12:45 61 06/03/18 12:25 100 Room Air 06/03/18 12:08 36.6 74 18 120/85 100 Room Air Physical Exam GENERAL: Sitting up in bed, alert, well appearing, well nourished, no distress, non-toxic EYE EXAM: normal conjunctiva. PERRL and EOM's intact. OROPHARYNX: no exudate, no erythema, lips, buccal mucosa, and tongue normal and mucous membranes are moist NECK: supple, no nuchal rigidity, no adenopathy, non-tender LUNGS: Clear to auscultation. Normal chest wall mechanics HEART: no murmurs, S1 normal and S2 normal ABDOMEN: abdomen soft, non-tender, normo-active bowel sounds, no masses, no rebound or guarding. BACK: Back is symmetrical on inspection and there is no deformity, no midline tenderness, no CVA tenderness. SKIN: no rashes and no bruising UPPER EXTREMITIES: upper extremities are grossly normal. LOWER EXTREMITIES: No pitting edema. NEURO EXAM: Normal sensorium, cranial nerves II-XII intact, normal speech, no weakness of arms, no weakness of legs. No drift. Finger to nose intact. Gross sensation intact. Medical Decision & Procedures ER Provider Diagnostic Interpretation: Radiology results as stated below per my review and the radiologist's interpretation: HEAD WITHOUT CONTRAST (CT) CT DOSE: 537.48 mGy.cm HISTORY: Mental status change Stroke TECHNIQUE: Multiaxial CT images of the head were performed without the use of intravenous contrast. A dose lowering technique was utilized adhering to the principles of ALARA. Comparison: 01/04/2018 Findings: The paranasal sinuses and mastoid air cells are clear. Unchanged hyperdense focus of the right pelvis. This usually represents long-standing calcification. The right frontal hyperdense focus procedure described has resolved. 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 Right-sided craniotomy defect is stable. Focal area of encephalomalacia right temporal lobe is stable. Impression: Chronic and postoperative change. No acute intracranial abnormality. The above report was generated using voice recognition software. It may contain grammatical, syntax or spelling errors. Electronically signed by: Edgard Montesinos M.D. 06/03/2018 1:14 PM Dictated Date/Time: 06/03/2018 1:11 PM Laboratory Results 06/03/18 12:50 Red Blood Count 4.97, Mean Corpuscular Volume 87.9, Mean Corpuscular Hemoglobin 30.6, Mean Corpuscular Hemoglobin Concent 34.8, Mean Platelet Volume 9.6, Neutrophils (%) (Auto) 60.2, Lymphocytes (%) (Auto) 29.5, Monocytes (%) (Auto) 7.6, Eosinophils (%) (Auto) 2.0, Basophils (%) (Auto) 0.5, Neutrophils # (Auto) 3.31, Lymphocytes # (Auto) 1.62, Monocytes # (Auto) 0.42, Eosinophils # (Auto) 0.11, Basophils # (Auto) 0.03 06/03/18 12:50 Test 06/03/18 12:50 White Blood Count 5.50 K/uL (4.8-10.8) Red Blood Count 4.97 M/uL (4.7-6.1) Hemoglobin 15.2 g/dL (14.0-18.0) Hematocrit 43.7 % (42-52) Mean Corpuscular Volume 87.9 fL (80-100) Mean Corpuscular Hemoglobin 30.6 pg (25-34) Mean Corpuscular Hemoglobin Concent 34.8 g/dl (32-36) Platelet Count 180 K/uL (130-400) Mean Platelet Volume 9.6 fL (7.4-10.4) Neutrophils (%) (Auto) 60.2 % Lymphocytes (%) (Auto) 29.5 % Monocytes (%) (Auto) 7.6 % Eosinophils (%) (Auto) 2.0 % Basophils (%) (Auto) 0.5 % Neutrophils # (Auto) 3.31 K/uL (1.4-6.5) Lymphocytes # (Auto) 1.62 K/uL (1.2-3.4) Monocytes # (Auto) 0.42 K/uL (0.11-0.59) Eosinophils # (Auto) 0.11 K/uL (0-0.5) Basophils # (Auto) 0.03 K/uL (0-0.2) RDW Standard Deviation 40.9 fL (36.4-46.3) RDW Coefficient of Variation 12.8 % (11.5-14.5) Immature Granulocyte % (Auto) 0.2 % Immature Granulocyte # (Auto) 0.01 K/uL (0.00-0.02) Prothrombin Time 11.4 SECONDS (9.0-12.0) Prothromb Time International Ratio 1.1 (0.9-1.1) Activated Partial Thromboplast Time 26.8 SECONDS (21.0-31.0) Partial Thromboplastin Ratio 1.0 Anion Gap 5.0 mmol/L (3-11) Est Creatinine Clear Calc Drug Dose 128.8 ml/min Estimated GFR () 131.5 Estimated GFR (Non- 113.5 BUN/Creatinine Ratio 14.8 (10-20) Calcium Level 9.3 mg/dl (8.5-10.1) Magnesium Level 2.4 mg/dl (1.8-2.4) Total Creatine Kinase 123 U/L (39-308) Creatine Kinase MB < 1.0 ng/ml (0.5-3.6) Creatine Kinase MB Ratio (0-3.0) Troponin I < 0.015 ng/ml (0-0.045) Laboratory results per my review. Medications Administered Medications (Trade) Dose Ordered Sig/Bay Route Start Time Stop Time Status Last Admin Dose Admin Sodium Chloride 1,000 ml @ 50 mls/hr Q20H IV 06/03/18 12:34 06/03/18 15:31 DC 06/03/18 13:15 50 MLS/HR ECG Per My Interpretation Indication: other (seizure) Rate (beats per minute): 54 Rhythm: sinus bradycardia Findings: other (normal axis, J point elevation in anterolateral leads) Change: no significant change ED Course ED COURSE: Vital signs were reviewed and showed bradycardia. The patients medical record was reviewed The above diagnostic studies were performed and reviewed. ED treatments and interventions as stated above. 1228: The patient was evaluated in room C5. A complete history and physical examination was performed. 1234: Ordered Sodium Chloride 1000 ml @ 50 mls/hr IV. 1400: Review of patient's notes show that the patient follows with Dr. Peng and is supposed to be on Depakote. 1449: I reviewed the patient's case with Dr. Shea who recommended 500 mg of Keppra. 1450: Upon reevaluation, the patient is feeling better. I discussed the findings and the treatment plan with the patient. He verbalizes agreement and understanding. He was discharged home. 1500: Ordered Keppra Tab 500 mg PO. Medical Decision Differential Diagnosis includes but is not limited to ischemic Stroke, hemorrhagic stroke, bells palsy, mass, neoplasm, migraine headache, seizure, subarachnoid hemorrhage, TIA, and transient global amnesia. Patient is a 28-year-old male with a past medical history of epilepsy secondary to cavernous hemangiomas with previous surgery has been extremely noncompliant and presents the ER for left-sided facial paresthesias, left arm paresthesias and feeling of weakness in his left arm. He notes he has been getting these symptoms since he was 9 years old which with a prelude to his seizures. He notes the only thing different about today was that he did not have a seizure afterwards. He has no other complaints. He is completely back to baseline. He has not taken any antiepileptics for quite some time. CT head was unremarkable along with CBC and BMP. Troponin was negative. EKG was reviewed. Patient was discussed with neurology. They recommended no additional imaging at this time restarting him on his Keppra. He was agreeable. He was discharged follow-up with PCP as an outpatient. I do not believe that this consistent with a stroke as he has had the same symptoms as a prodrome to his typical seizures. He does not drive. He does not have a car or a license. Discussed with Pt concerning signs and symptoms to watch out for. Pt was instructed to follow up with their PCP and discussed with the patient their option to return to the ED at anytime for persistent or worsening symptoms. The appropriate anticipatory guidance and out-patient management, including indications for return to the emergency department, were explained at length to the patient and understood. Medication Reconcilliation Current Medication List: was personally reviewed by me Blood Pressure Screening Patient's blood pressure: Normal blood pressure Consults Time Called: 1430 Consulting Physician: Dr. Shea-Neurology Returned Call: [phone] I reviewed the patient's case with Dr. Shea who recommended 500 mg of Keppra. Impression Primary Impression: Seizure Scribe Attestation The scribe's documentation has been prepared under my direction and personally reviewed by me in its entirety. I confirm that the note above accurately reflects all work, treatment, procedures, and medical decision making performed by me. Departure Information Dispostion Home / Self-Care Prescriptions Levetiracetam (KEPPRA) 500 Mg Tab 500 MG PO BID for 30 Days, #60 TAB Prov: JohnsonJesse, DO 06/03/18 Referrals Osvaldo Murphy M.D. (PCP) Lili Shea M.D. Forms HOME CARE DOCUMENTATION FORM, IMPORTANT VISIT INFORMATION Patient Instructions ED Seizure Recurrent, My [facility] Additional Instructions Please follow up with your primary care doctor with in the next 24 hours. Any worsening of your symptoms, please return to the ED immediately. This includes any fevers greater than 100.4, worsening pain, chest pain, shortness breath, persistent nausea, vomiting, unable to eat or drink, or any other concerning signs or symptoms from your standpoint. Please make sure you are not driving. Please take Keppra 500 mg twice a day. Please follow-up with neurology in the next 1-2 weeks.
== END 2018-06-03 15:08 | disposition home or self-care (01) ==
LOC: C.EDB 12:06 → C.EDC 15:08
DX: G40.909 Epilepsy, unspecified, not intractable, without status epilepticus (principal); Z98.890 Other specified postprocedural states; Z82.0 Family history of epilepsy and other diseases of the nervous system; F17.210 Nicotine dependence, cigarettes, uncomplicated; Z79.899 Other long term (current) drug therapy; Z91.19 Patient's noncompliance with other medical treatment and regimen